=== PATIENT | male | born 1995 | race Caucasian/White ===

== ENCOUNTER 2022-03-20 03:29 | Emergency (ER) | payer SELFPAY ==
[~2022-03-20] VITALS: Ht 190.5 cm; Wt 68.0 kg
[2022-03-20] MEDS ORDERED: DOXYCYCLINE HY100 MG PO (06:05)
== END 2022-03-20 07:15 | disposition home or self-care (01) ==
LOC: EDBD 03:34 → ER 03:34
DX: R60.9 Edema, unspecified (principal); L03.116 Cellulitis of left lower limb; M25.462 Effusion, left knee; I10 Essential (primary) hypertension; F20.9 Schizophrenia, unspecified; F17.210 Nicotine dependence, cigarettes, uncomplicated
CPT/HCPCS: 93971; 99284